=== PATIENT | male | born 1950 | race African-American/Black ===

== ENCOUNTER 2025-05-01 11:37 | Outpatient (CLI) | payer OTHER | END 2025-05-01 11:38 | disposition home or self-care (01) | LOC: HS RAD 11:37 | PROVIDERS: ATTEND Family Medicine | DX: J18.9 Pneumonia, unspecified organism (principal); J84.10 Pulmonary fibrosis, unspecified; J47.9 Bronchiectasis, uncomplicated; R91.8 Other nonspecific abnormal finding of lung field; I51.7 Cardiomegaly; I25.10 Atherosclerotic heart disease of native coronary artery without angina pectoris | CPT/HCPCS: 71250 ==